=== PATIENT | female | born 1990 | race Caucasian/White ===

== ENCOUNTER → 2018-05-15 | Outpatient (CLI) | payer OTHER ==
--- NOTE | 2018-05-15 09:14 | RAD ---
EXAM: Abdomen sonogram. HISTORY: Elevated liver function laboratory values. TECHNIQUE: Sonographic imaging of the abdomen was performed. COMPARISON: None. FINDINGS: There is hepatomegaly and hepatic steatosis. No focal hepatic lesion is seen. The common bile duct is normal in caliber. The gallbladder, kidneys, and spleen are unremarkable. The aorta is normal in caliber. The inferior vena cava is patent. The pancreas is obscured due to bowel gas. IMPRESSION: 1. Hepatomegaly and hepatic steatosis. 2. Obscured pancreas due to bowel gas. 3. Otherwise, unremarkable abdomen sonogram. Electronically signed by: Karly Quiroga MD (05/15/2018 9:10 AM) [id number]
== END | disposition home or self-care (01) ==
LOC: US 07:50
PROVIDERS: ATTEND Internal Medicine Gastroenterology
DX: K76.0 Fatty (change of) liver, not elsewhere classified (principal); R16.0 Hepatomegaly, not elsewhere classified
CPT/HCPCS: 76700